=== PATIENT | female | born 1985 | race Caucasian/White ===

== ENCOUNTER 2018-11-12 16:20 | Emergency (ER) | payer SELFPAY ==
[~2018-11-12] VITALS: Ht 165.1 cm; Wt 71.0 kg
[2018-11-12 16:26] VITALS: BP 123/64
[2018-11-12 17:49] VITALS: BP 123/64
== END 2018-11-12 17:49 | disposition home or self-care (01) ==
LOC: MED 16:20
DX: S63.601A Unspecified sprain of right thumb, initial encounter (principal); S60.111A Contusion of right thumb with damage to nail, initial encounter; W23.0XXA Caught, crushed, jammed, or pinched between moving objects, initial encounter; Y93.89 Activity, other specified; Y92.89 Other specified places as the place of occurrence of the external cause; Y99.8 Other external cause status
CPT/HCPCS: 73140; 99283